=== PATIENT | male | born 1970 | race Caucasian/White ===

== ENCOUNTER → 2021-02-28 12:31 | Outpatient (CLI) | payer OTHER, SELFPAY ==
[2021-02-28 20:34] LABS: COVID19 - ORCAS (NP or Nasal) Negative (Negative)
== END ==
PROVIDERS: Family Provider Family Medicine; PCP Family Medicine; Visit Provider Family Medicine
DX: Z20.822 Contact with and (suspected) exposure to COVID-19 (principal)
CPT/HCPCS: U0003